=== PATIENT | male | born 1940 | race Caucasian/White ===

== ENCOUNTER 2022-10-08 15:03 | Inpatient (IN) ==
[2022-10-08] MEDS ORDERED: Lidocaine 2% w/ EPI 1:200,000 MPF 20 ML SDV VIAL INJ ONE (16:48)
[2022-10-08 17:26] LABS: ABS Basophils 0.1 10^3/ul (0-0.2); ABS Lymphocytes 0.7 10^3/ul (1.0-4.8); ABS Monocytes 0.4 10^3/ul (0-0.8); ABS Neutrophils 5.9 10^3/ul (1.5-7.7); Eosinophil % 0.6 %; Hematocrit 39 % (42-52); Hemoglobin 12.7 g/dL (14.0-18.0); Lymphocyte % 10.1 %; Mean Corpuscular HGB Conc 32 g/dL (31-36); Mean Corpuscular Hemoglobin 31 pg (27-31); Mean Corpuscular Volume 96 fL (80-94); Mean Platelet Volume 8.3 fL (7.4-10.4); Platelet Count 186 10^3/uL (150-450); Red Cell Distribution Width 15 % (10-15); White Blood Count 7.1 10^3/uL (3.5-10.8)
[2022-10-08 17:51] LABS: ALT 16 U/L (7-52); Albumin/Globulin Ratio 0.7 (1-3); Alkaline Phosphatase 86 U/L (35-149); Blood Urea Nitrogen 22 mg/dL (6-24); C Reactive Protein 14.66 mg/L (<8.01); CO2 Carbon Dioxide 27 mmol/L (22-32); Calcium 8.6 mg/dL (8.6-10.3); Chloride 104 mmol/L (101-111); Creatinine, Serum 1.02 mg/dL (0.67-1.17); Globulin 4.6 g/dL (2-4); Glucose 112 mg/dL (70-100); Sodium 137 mmol/L (135-145); Total Protein 7.6 g/dL (6.4-8.9); eGFR CKD-EPI 73.8 (>60)
[2022-10-08 17:53] LABS: Anion Gap 6 mmol/L (2-11)
[2022-10-08] MEDS ORDERED: Cefepime 2 GM in NS 0.9% 50 ML 50 ML IVPB ONE (17:59)
[2022-10-08] MEDS ORDERED: Vancomycin 1,250 MG in NS 0.9% 250 ml 250 ML IVPB ONE (18:30)
[2022-10-08 19:16] LABS: Potassium Redraw 4.1 mmol/L (3.5-5.0)
[2022-10-08] MEDS ORDERED: Enoxaparin 40 MG/0.4 ML SYR SUBCUT ONE (20:37)
[2022-10-08] MEDS ORDERED: cefTRIAXone 1 gm/50 mL D5W 1 GM/50 ML BAG IV SCH ×2 (20:45→22:00)
[2022-10-08] MEDS ORDERED: Enoxaparin 40 MG/0.4 ML SYR SUBCUT SCH (21:00)
[2022-10-08] MEDS ORDERED: Cefepime 2 GM IV - ED ONCE IV ONE (22:00)
[2022-10-09] MEDS ORDERED: Acetaminophen IV 1 GM/100ML 1,000 MG/100 ML BAG IV PRN (00:12)
[2022-10-09] MEDS ORDERED: Piperacillin/Tazobac ADVAN 3.375 GM in NS 0.9% 100 ml BAG 100 ML IV ONE (06:19)
[2022-10-09] MEDS ORDERED: Zosyn per Pharmacy NOTE FOLLOW UP SCH (07:00)
[2022-10-09 07:20] LABS: ABS Lymphocytes 0.6 10^3/ul (1.0-4.8); ABS Monocytes 0.4 10^3/ul (0-0.8); ABS Neutrophils 3.8 10^3/ul (1.5-7.7); Eosinophil % 0.3 %; Hematocrit 35 % (42-52); Hemoglobin 11.6 g/dL (14.0-18.0); Lymphocyte % 12.5 %; Mean Corpuscular HGB Conc 33 g/dL (31-36); Mean Corpuscular Hemoglobin 32 pg (27-31); Mean Corpuscular Volume 96 fL (80-94); Mean Platelet Volume 8.9 fL (7.4-10.4); Platelet Count 157 10^3/uL (150-450); Red Blood Count 3.69 10^6 /uL (4.18-5.48); Red Cell Distribution Width 14 % (10-15); White Blood Count 4.8 10^3/uL (3.5-10.8)
[2022-10-09 07:40] LABS: Calcium 8.1 mg/dL (8.6-10.3); Creatinine, Serum 0.9 mg/dL (0.67-1.17); Potassium 4.1 mmol/L (3.5-5.0); eGFR CKD-EPI 85.8 (>60)
[2022-10-09] MEDS ORDERED: Vancomycin per Pharmacy 1 EA NOTE FOLLOW UP SCH (09:00)
[2022-10-09] MEDS ORDERED: Vancomycin 1,500 MG in NS 0.9% 250 ml 250 ML IVPB ONE (09:15)
[2022-10-09] MEDS ORDERED: Lidocaine 1% VIAL 10 MG/ML VIAL 30 ML ONE (10:00)
[2022-10-09] MEDS ORDERED: Morphine 2 MG/ML SYRINGE IV ONE (10:11)
[2022-10-09] MEDS ORDERED: ZOSYN 3.375 GM Q8H per EXTENDED INFUSION IV SCH (10:30)
[2022-10-09 12:20] LABS: C Reactive Protein 24.16 mg/L (<8.01)
[2022-10-09 12:44] LABS: Urine Appearance Cloudy; Urine Bilirubin Negative (Negative); Urine Blood Negative (Negative); Urine Color Yellow; Urine Glucose 1+(50 mg/dL) (Negative); Urine Ketones Negative (Negative); Urine Nitrite Negative (Negative); Urine Protein 3+(>=500 mg/dL) (Negative); Urine Specific Gravity 1.022 (1.002-1.030); Urine Urobilinogen Negative (Negative)
[2022-10-09 13:00] LABS: Urine Bacteria Absent (Absent); Urine Red Blood Cell 3+(>10/hpf) (Absent); Urine Squamous Epithelial Cell Present (Absent); Urine White Blood Cell 3+(>20/hpf) (Absent)
[2022-10-09] MEDS ORDERED: Metoprolol Tartrate 5 mg VIAL 5 ml VIAL (1 mg/ml) IV ONE (20:52)
[2022-10-09 21:00] LABS: ABS Lymphocytes 0.9 10^3/ul (1.0-4.8); ABS Monocytes 0.6 10^3/ul (0-0.8); ABS Neutrophils 3.8 10^3/ul (1.5-7.7); Eosinophil % 0.6 %; Hematocrit 34 % (42-52); Hemoglobin 11.3 g/dL (14.0-18.0); Lymphocyte % 16.9 %; Mean Corpuscular HGB Conc 33 g/dL (31-36); Mean Corpuscular Hemoglobin 31 pg (27-31); Mean Corpuscular Volume 95 fL (80-94); Mean Platelet Volume 8.1 fL (7.4-10.4); Platelet Count 154 10^3/uL (150-450); Red Blood Count 3.64 10^6 /uL (4.18-5.48); Red Cell Distribution Width 15 % (10-15); White Blood Count 5.3 10^3/uL (3.5-10.8)
[2022-10-09] MEDS ORDERED: Enoxaparin 40 MG/0.4 ML SYR SUBCUT SCH (21:00)
[2022-10-09] MEDS ORDERED: Iohexol 350 (CONTRAST) 500 ML MDV IV ONE (21:09)
[2022-10-09 21:32] LABS: Albumin 2.5 g/dL (3.2-5.2); Albumin/Globulin Ratio 0.6 (1-3); Creatinine, Serum 1.09 mg/dL (0.67-1.17); Globulin 3.9 g/dL (2-4); Potassium 4.3 mmol/L (3.5-5.0); Total Bilirubin 0.7 mg/dL (0.2-1.0); Total Protein 6.4 g/dL (6.4-8.9); eGFR CKD-EPI 68.2 (>60)
[2022-10-09] MEDS ORDERED: Vancomycin 1000 MG in NS 0.9% 250 ML IVPB SCH (22:00)
[2022-10-09] MEDS: Mupirocin 2% OINT TUBE TOPICAL SCH (22:10)
[2022-10-09] MEDS ORDERED: Metoprolol Tartrate 5 mg VIAL 5 ml VIAL (1 mg/ml) IV PRN (23:22)
[2022-10-09] MEDS ORDERED: Enoxaparin 60 MG/0.6 ML SYR SUBCUT ONE (23:34)
[2022-10-10] MEDS: cefTRIAXone 1 gm/50 mL D5W 1 GM/50 ML BAG IV SCH ×2 (00:07→21:54)
[2022-10-10] MEDS: Azithromycin 500 mg/250 ml NS 500 MG/250 ML BAG IVPB SCH ×2 (00:50→22:56)
[2022-10-10 06:05] LABS: ABS Lymphocytes 0.7 10^3/ul (1.0-4.8); ABS Monocytes 0.5 10^3/ul (0-0.8); Eosinophil % 0.2 %; Hematocrit 36 % (42-52); Hemoglobin 11.7 g/dL (14.0-18.0); Mean Corpuscular HGB Conc 33 g/dL (31-36); Mean Corpuscular Hemoglobin 31 pg (27-31); Mean Corpuscular Volume 96 fL (80-94); Mean Platelet Volume 8.4 fL (7.4-10.4); Nucleated Red Blood Cells % 0.1; Platelet Count 161 10^3/uL (150-450); Red Blood Count 3.74 10^6 /uL (4.18-5.48); Red Cell Distribution Width 15 % (10-15); White Blood Count 5.3 10^3/uL (3.5-10.8)
[2022-10-10 06:31] LABS: C Reactive Protein 85.04 mg/L (<8.01); Calcium 8.1 mg/dL (8.6-10.3); Creatinine, Serum 1.17 mg/dL (0.67-1.17); Magnesium 2.1 mg/dL (1.9-2.7); Potassium 4.5 mmol/L (3.5-5.0); eGFR CKD-EPI 62.6 (>60)
[2022-10-10] MEDS ORDERED: Albuterol/Ipratropium NEB.SOL (2.5/0.5 MG) 3 ML NEB.SOLN INH PRN (08:47)
[2022-10-10] MEDS ORDERED: Vancomycin Trough Check NOTE FOLLOW UP ONE (09:30)
[2022-10-10] MEDS: Enoxaparin 100 MG/ML SYR SUBCUT SCH ×2 (10:15→21:58)
[2022-10-10] MEDS: Mupirocin 2% OINT TUBE TOPICAL SCH ×2 (11:38→21:58)
[2022-10-10] MEDS ORDERED: Sulfur Hexaflouride MICROSPHR 25 MG VIAL ONE (15:42)
[2022-10-11 06:29] LABS: ABS Lymphocytes 1.1 10^3/ul (1.0-4.8); ABS Monocytes 0.8 10^3/ul (0-0.8); ABS Neutrophils 3.9 10^3/ul (1.5-7.7); Eosinophil % 0.3 %; Hematocrit 37 % (42-52); Hemoglobin 12.5 g/dL (14.0-18.0); Lymphocyte % 18.4 %; Mean Corpuscular HGB Conc 33 g/dL (31-36); Mean Corpuscular Hemoglobin 32 pg (27-31); Mean Corpuscular Volume 96 fL (80-94); Mean Platelet Volume 8.8 fL (7.4-10.4); Platelet Count 176 10^3/uL (150-450); Red Cell Distribution Width 15 % (10-15); White Blood Count 5.8 10^3/uL (3.5-10.8)
[2022-10-11 06:50] LABS: Calcium 8.3 mg/dL (8.6-10.3); Creatinine, Serum 1.36 mg/dL (0.67-1.17); Magnesium 2.4 mg/dL (1.9-2.7); Potassium 4.7 mmol/L (3.5-5.0); eGFR CKD-EPI 52.3 (>60)
[2022-10-11] MEDS: Enoxaparin 100 MG/ML SYR SUBCUT SCH ×2 (07:59→21:26)
[2022-10-11] MEDS: Mupirocin 2% OINT TUBE TOPICAL SCH ×2 (14:06→21:30)
[2022-10-12] MEDS: cefTRIAXone 1 gm/50 mL D5W 1 GM/50 ML BAG IV SCH ×2 (02:31→19:34)
[2022-10-12] MEDS: Azithromycin 500 mg/250 ml NS 500 MG/250 ML BAG IVPB SCH (03:20)
[2022-10-12 06:31] LABS: ABS Lymphocytes 0.9 10^3/ul (1.0-4.8); ABS Monocytes 0.5 10^3/ul (0-0.8); ABS Neutrophils 3.1 10^3/ul (1.5-7.7); Eosinophil % 0.1 %; Hematocrit 38 % (42-52); Hemoglobin 12.5 g/dL (14.0-18.0); Lymphocyte % 19.4 %; Mean Corpuscular HGB Conc 33 g/dL (31-36); Mean Corpuscular Hemoglobin 32 pg (27-31); Mean Corpuscular Volume 96 fL (80-94); Mean Platelet Volume 8.9 fL (7.4-10.4); Nucleated Red Blood Cells % 0.2; Platelet Count 192 10^3/uL (150-450); Red Blood Count 3.94 10^6 /uL (4.18-5.48); Red Cell Distribution Width 15 % (10-15); White Blood Count 4.5 10^3/uL (3.5-10.8)
[2022-10-12 06:48] LABS: Magnesium 2.5 mg/dL (1.9-2.7)
[2022-10-12 09:35] LABS: Calcium 8.1 mg/dL (8.6-10.3); Creatinine, Serum 1.62 mg/dL (0.67-1.17); Potassium 4.9 mmol/L (3.5-5.0); eGFR CKD-EPI 42.4 (>60)
[2022-10-12] MEDS: Enoxaparin 100 MG/ML SYR SUBCUT SCH ×2 (09:51→19:37)
[2022-10-12] MEDS ORDERED: Furosemide 40 mg/4 ml IV VIAL IV SLOW PU ONE (10:42)
[2022-10-12] MEDS: Mupirocin 2% OINT TUBE TOPICAL SCH ×2 (17:30→19:37)
[2022-10-13 06:17] LABS: ABS Lymphocytes 0.4 10^3/ul (1.0-4.8); ABS Monocytes 0.3 10^3/ul (0-0.8); ABS Neutrophils 2.8 10^3/ul (1.5-7.7); Hematocrit 37 % (42-52); Hemoglobin 12.1 g/dL (14.0-18.0); Lymphocyte % 12.7 %; Mean Corpuscular HGB Conc 33 g/dL (31-36); Mean Corpuscular Hemoglobin 31 pg (27-31); Mean Corpuscular Volume 95 fL (80-94); Nucleated Red Blood Cells % 0.1; Platelet Count 171 10^3/uL (150-450); Red Blood Count 3.86 10^6 /uL (4.18-5.48); Red Cell Distribution Width 14 % (10-15); White Blood Count 3.5 10^3/uL (3.5-10.8)
[2022-10-13 06:39] LABS: Creatinine, Serum 1.42 mg/dL (0.67-1.17); Magnesium 2.5 mg/dL (1.9-2.7); Potassium 4.9 mmol/L (3.5-5.0); eGFR CKD-EPI 49.6 (>60)
[2022-10-13 06:53] LABS: TSH Ultra Thyroid Stim Horm 3.38 mcIU/mL (0.34-5.60)
[2022-10-13] MEDS: Mupirocin 2% OINT TUBE TOPICAL SCH ×2 (09:17→22:05)
[2022-10-13] MEDS: Enoxaparin 100 MG/ML SYR SUBCUT SCH ×2 (09:17→21:11)
[2022-10-13] MEDS ORDERED: Furosemide 40 mg/4 ml IV VIAL IV ONE (10:57)
[2022-10-13] MEDS: cefTRIAXone 1 gm/50 mL D5W 1 GM/50 ML BAG IV SCH (21:11)
[2022-10-14 06:29] LABS: Hematocrit 38 % (42-52); Hemoglobin 12.8 g/dL (14.0-18.0); Mean Corpuscular HGB Conc 33 g/dL (31-36); Mean Corpuscular Hemoglobin 31 pg (27-31); Mean Corpuscular Volume 94 fL (80-94); Mean Platelet Volume 8.5 fL (7.4-10.4); Platelet Count 179 10^3/uL (150-450); Red Blood Count 4.09 10^6 /uL (4.18-5.48); Red Cell Distribution Width 14 % (10-15); White Blood Count 5.3 10^3/uL (3.5-10.8)
[2022-10-14 06:48] LABS: Calcium 8.3 mg/dL (8.6-10.3); Creatinine, Serum 1.13 mg/dL (0.67-1.17); Magnesium 2.3 mg/dL (1.9-2.7); Potassium 4.1 mmol/L (3.5-5.0); eGFR CKD-EPI 65.3 (>60)
[2022-10-14] MEDS ORDERED: Furosemide 20 mg/2 ml IV VIAL IV ONE (08:19)
[2022-10-14] MEDS: Mupirocin 2% OINT TUBE TOPICAL SCH ×2 (09:14→21:56)
[2022-10-14] MEDS: Enoxaparin 100 MG/ML SYR SUBCUT SCH ×2 (09:14→21:55)
[2022-10-14 10:18] LABS: Ferritin 101.7 ng/mL (24-336)
[2022-10-15 06:33] LABS: Calcium 8.1 mg/dL (8.6-10.3); Creatinine, Serum 1.08 mg/dL (0.67-1.17); Potassium 3.9 mmol/L (3.5-5.0); eGFR CKD-EPI 68.9 (>60)
[2022-10-15 06:46] LABS: Magnesium 2.2 mg/dL (1.9-2.7)
[2022-10-15] MEDS: Enoxaparin 100 MG/ML SYR SUBCUT SCH (10:59)
[2022-10-15] MEDS: Mupirocin 2% OINT TUBE TOPICAL SCH ×2 (11:00→20:18)
[2022-10-15 12:19] LABS: HDL Cholesterol 36.9 mg/dL
[2022-10-15 12:31] LABS: Activated Partial Thrombo Time 35.5 seconds (26.0-38.0); INR 1.13 (0.88-1.18)
[2022-10-15] MEDS ORDERED: Enoxaparin 100 MG/ML SYR SUBCUT SCH (21:00)
[2022-10-16] MEDS ORDERED: NS 0.9% 1000 ml BAG 1,000 ML IV SCH ×2 (07:00→11:00)
[2022-10-16 07:16] LABS: Hematocrit 45 % (42-52); Hemoglobin 14.8 g/dL (14.0-18.0); Mean Corpuscular HGB Conc 33 g/dL (31-36); Mean Corpuscular Hemoglobin 31 pg (27-31); Mean Corpuscular Volume 94 fL (80-94); Mean Platelet Volume 8.4 fL (7.4-10.4); Platelet Count 192 10^3/uL (150-450); Red Blood Count 4.78 10^6 /uL (4.18-5.48); Red Cell Distribution Width 14 % (10-15)
[2022-10-16 07:36] LABS: Creatinine, Serum 1.03 mg/dL (0.67-1.17); Magnesium 2.2 mg/dL (1.9-2.7); Potassium 4.2 mmol/L (3.5-5.0)
[2022-10-16] MEDS ORDERED: fentaNYL 100 mcg/2 ml 50 MCG/ML VIAL ONE (09:13)
[2022-10-16] MEDS ORDERED: Midazolam 5 mg/5 ml VIAL 1 mg/ml 5 ml VIAL (5 mg) ONE (09:13)
[2022-10-16] MEDS ORDERED: VERAPAMIL 2.5 MG/ML 2 ML VIAL ** 5 mg/2 ml ONE (09:13)
[2022-10-16] MEDS ORDERED: Iohexol 350 (CONTRAST) 100 ML PAK IV ONE (09:14)
[2022-10-16] MEDS ORDERED: Lidocaine 1% MPF 5 ML VIAL ONE (09:14)
[2022-10-16] MEDS ORDERED: Heparin 2 UNITS/ML 1000 mls 2,000 ML IV ONE (09:14)
[2022-10-16] MEDS ORDERED: Heparin 1,000 UNIT/ML 10 ml (10,000 UNITS) CATHLAB/DIALYSIS ONE (09:14)
[2022-10-16] MEDS ORDERED: nitroGLYCERIN DRIP 25,000 MCG/250 ML BTL ONE (09:14)
[2022-10-16] MEDS ORDERED: Phenylephrine 40 mcg/mL 10mL (400mcg) SYRINGE ONE (10:41)
[2022-10-16] MEDS: Mupirocin 2% OINT TUBE TOPICAL SCH ×2 (11:03→21:07)
[2022-10-17 07:13] LABS: Creatinine, Serum 0.99 mg/dL (0.67-1.17); Potassium 4.1 mmol/L (3.5-5.0); eGFR CKD-EPI 76.5 (>60)
[2022-10-17] MEDS: Mupirocin 2% OINT TUBE TOPICAL SCH ×2 (10:41→20:15)
[2022-10-17] MEDS ORDERED: Pneumococcal Vac 23-Polyvalent IM ONE (17:00)
[2022-10-17] MEDS ORDERED: Influenza vaccine *QUAD* *2022-23* 0.5 ML SYRINGE IM ONE (17:00)
[2022-10-18] MEDS: Mupirocin 2% OINT TUBE TOPICAL SCH ×2 (11:15→19:50)
[2022-10-19] MEDS: Mupirocin 2% OINT TUBE TOPICAL SCH ×2 (10:33→20:27)
[2022-10-20] MEDS: Mupirocin 2% OINT TUBE TOPICAL SCH ×2 (11:03→22:56)
[2022-10-21 07:16] LABS: ABS Eosinophils 0.3 10^3/ul (0-0.6); ABS Lymphocytes 1.2 10^3/ul (1.0-4.8); ABS Monocytes 1.1 10^3/ul (0-0.8); ABS Neutrophils 4.1 10^3/ul (1.5-7.7); Eosinophil % 3.9 %; Hematocrit 42 % (42-52); Hemoglobin 13.7 g/dL (14.0-18.0); Lymphocyte % 18.2 %; Mean Corpuscular HGB Conc 33 g/dL (31-36); Mean Corpuscular Hemoglobin 31 pg (27-31); Mean Corpuscular Volume 95 fL (80-94); Mean Platelet Volume 8.8 fL (7.4-10.4); Nucleated Red Blood Cells % 0.1; Platelet Count 169 10^3/uL (150-450); Red Cell Distribution Width 15 % (10-15); White Blood Count 6.7 10^3/uL (3.5-10.8)
[2022-10-21 07:34] LABS: Calcium 7.9 mg/dL (8.6-10.3); Creatinine, Serum 1.21 mg/dL (0.67-1.17); Potassium 4.3 mmol/L (3.5-5.0); eGFR CKD-EPI 60.2 (>60)
[2022-10-21] MEDS: Mupirocin 2% OINT TUBE TOPICAL SCH ×2 (08:15→22:15)
[2022-10-21] MEDS ORDERED: [UNRECOGNIZED DRUG - OTHER] IM ONE (15:00)
[2022-10-22] MEDS: Mupirocin 2% OINT TUBE TOPICAL SCH ×2 (17:45→21:47)
[2022-10-22] MEDS ORDERED: Ferric Gluconate IV 250 MG in NS 0.9% 250 ml 200 ML IVPB ONE (18:30)
[2022-10-23] MEDS: Mupirocin 2% OINT TUBE TOPICAL SCH (09:59)
[2022-10-23 10:51] LABS: Rapid COVID-19 Molecular Undetected (Undetected)
[2022-10-23 13:47] VITALS: BP 124/56
== END 2022-10-23 14:15 | DRG 286 ==
LOC: EDHOLD 15:03 → ED 15:03 → SUATTDRO 21:48 → EDHOLD 22:21 → MED 23:01 → SUATTDRO 10-10 11:00 → MEDTELE 10-16 11:31
PROVIDERS: ADMIT Internal Medicine; ATTEND Internal Medicine